=== PATIENT | female | born 1995 | race Caucasian/White ===

== ENCOUNTER 2023-11-24 11:13 | Emergency (ER) | payer MEDICAID, SELFPAY ==
[2023-11-24 11:15] VITALS: BP 102/61; PULSE 80; RESP 16; TEMP 36.6; O2SAT 98; BMI 33.2
--- NOTE | 2023-11-24 11:18 | EX.ED.DYSGE1 ---
HPI <SHY Armas - Last Filed: 11/24/23 12:55> History of Present Illness Chief Complaint: Abd Pain Narrative Narrative: Patient is a 28-year-old female that uses marijuana daily, who presents to the emergency department for generalized abdominal bloating, epigastric pain. Patient states that her abdomen has been getting swollen for the last 5 to 6 months. She did have a tubal ligation 4 years ago. She is concerned that she might be . Patient also has not had a menstrual cycle in last 4 months however did start 1 to 2 days ago and has significant bleeding with clots. Patient states that her bowels change from intermittent constipation to diarrhea. She denies any fever or chills. She denies any nausea or vomiting PFSH <SHY Armas - Last Filed: 11/24/23 12:55> [facility] Medical History (Updated 11/24/23 @ 12:[address] Saad Mistry MD) Paranoid schizophrenia History of substance abuse Home Medications ?Medication ?Instructions ?Recorded ?Last Taken ?Type aripiprazole 30 mg tablet 30 mg PO DAILY 11/24/23 11/23/23 History baclofen 10 mg tablet 10 mg PO QPM 11/24/23 11/23/23 History dicyclomine 20 mg tablet 20 mg PO BID #20 tabs 11/24/23 Unknown Rx emtricitabine 200 mg-tenofovir 1 tab PO DAILY 11/24/23 11/24/23 History disoproxil fumarate 300 mg tablet meloxicam 15 mg tablet 15 mg PO DAILY 11/24/23 11/23/23 History naloxone 4 mg/actuation nasal spray 1 spray intranasal DAILY PRN PRN 11/24/23 Unknown History opioid overdose ondansetron 4 mg disintegrating 4 mg PO Q8H PRN PRN Nausea #10 tabs 11/24/23 Unknown Rx tablet Allergy/AdvReac Type Severity Reaction Status Date / Time amoxicillin Allergy Itching Verified 11/24/23 11:21 guaifenesin (From Robitussin) Allergy Hives Verified 11/24/23 11:21 Penicillins Allergy Itching Verified 11/24/23 11:21 tramadol Allergy Itching Verified 11/24/23 11:21 Surgical History History of esophagogastroduodenoscopy (EGD) H/O tubal ligation History of tonsillectomy and adenoidectomy Social History Smoking Status: Current every day smoker tobacco type: cigarettes ROS <SHY Armas - Last Filed: 11/24/23 12:55> ROS ED ROS Narrative Constitutional: Negative for fever, chills, weight loss, weakness Eyes: Negative for vision loss, vision change, double vision ENT: Negative for any sore throat, ear pain, congestion Cardiovascular: Negative for any chest pain, tightness, palpitations Respiratory: Negative for any cough, sputum production, hemoptysis, dyspnea, dyspnea on exertion, orthopnea Gastrointestinal: Negative for any nausea, vomiting, blood in stool, blood in vomit. Abdominal bloating, intermittent diarrhea, intermittent constipation : Negative for any urinary frequency, dysuria, retention, blood in urine Muscle skeletal: Negative for any neck pain, back pain Neurological: Negative for any headache, syncope, dizziness Skin: Negative for any rashes, itching, abrasions, lacerations Psychiatric: Negative for any depression, anxiety, stress, suicidal ideation, homicidal ideation Hematologic: Negative for any excessive bruising, easy bleeding EXAM <SHY Armas - Last Filed: 11/24/23 12:55> Physical Exam Narrative Exam Narrative: Vital signs reviewed. HEET: Head normocephalic atraumatic, TMs clear bilaterally. Posterior pharynx is clear, moist mucous membranes. Nares clear bilaterally. Neck: Supple with no lymphadenopathy or tenderness. No signs of meningismus. Cardiac: Regular rate and rhythm no murmurs gallops or rubs, equal peripheral pulses bilaterally. Respiratory: Lungs clear to auscultation bilaterally. No chest tenderness. Abdomen: Soft. No abdominal bruit or pulsatile masses. No hepatosplenomegaly. Patient abdomen is soft, her abdomen does not appear to be an state, patient is slightly obese. There is no peritoneal signs. Hyperactive bowel sounds. Patient did have some discomfort with deep palpation of the epigastric area, no significant pain to the right upper quadrant negative Quach sign. No pain in the McBurney's point. Extremities: No peripheral edema, no signs of gross trauma or deformity. Active full range of motion of all extremities. Neuro: Cranial nerves II through XII intact, no focal neurological deficits. Skin: Clean dry and intact with no rash, purpura, petechiae, vesicles or pustules. Backs/flank: No CVA tenderness, no midline spinal tenderness, no deformity. Psych: Normal mood and affect. No SI, HI or acute psychosis. Const Vital Signs: 11/24/23 11:15 11/24/23 12:43 Temperature 97.9 F 98 F Temperature Source Oral Pulse Rate 80 95 Respiratory Rate 16 18 Blood Pressure 102/61 104/61 Blood Pressure Mean 74 75 Pulse Ox 98 97 Oxygen Delivery Method Room Air Positive well nourished and well developed General Appearance ED: well developed <Dr. Saad Mistry MD - Last Filed: 11/24/23 12:58> Physical Exam Const Vital Signs: 11/24/23 11:15 11/24/23 12:43 Temperature 97.9 F 98 F Temperature Source Oral Pulse Rate 80 95 Respiratory Rate 16 18 Blood Pressure 102/61 104/61 Blood Pressure Mean 74 75 Pulse Ox 98 97 Oxygen Delivery Method Room Air MDM <SHY Armas - Last Filed: 11/24/23 12:55> MDM Lab Data Labs: Laboratory Results - last 24 hr 11/24/23 11/24/23 11:45 12:10 WBC 9.0 RBC 4.27 Hgb 11.6 L Hct 37.3 MCV 87.4 MCH 27.2 MCHC 31.1 L RDW Std Deviation 52.8 H RDW Coeff of Boris 16.5 H Plt Count 293 MPV 9.7 Immature Gran % (Auto) 0.200 Neut % (Auto) 62.3 Lymph % (Auto) 27.7 Rincon % (Auto) 7.8 Eos % (Auto) 1.8 Baso % (Auto) 0.2 Absolute Neuts (auto) 5.6 Absolute Lymphs (auto) 2.49 Nucleated RBC % 0 Sodium 138 Potassium 3.9 Chloride 109 H Carbon Dioxide 25.0 Anion Gap 4 L BUN 16 Creatinine 0.77 Estim Creat Clear Calc 126.37 Est GFR (MDRD) Af Amer 115 Est GFR (MDRD) Non-Af 95 BUN/Creatinine Ratio 20.7 H Glucose 88 Calcium 8.5 Total Bilirubin 0.60 AST 18 ALT 21 Alkaline Phosphatase 72 Total Protein 6.9 Albumin 3.5 Globulin 3.4 Albumin/Globulin Ratio 1.0 Lipase 30 Serum , Qual NEGATIVE Urine Color Red Urine Clarity Turbid Urine pH 8.0 Ur Specific [place] 1.015 Urine Protein 500 H Urine Glucose (UA) Normal Urine Ketones Negative Urine Occult Blood 250 H Urine Nitrite Negative Urine Bilirubin Negative Urine Urobilinogen Normal Ur Leukocyte Esterase Negative Urine RBC > 100 SEEN Urine WBC 0 SEEN Ur Squamous Epith Cells 0 SEEN Urine Bacteria 1+ Urine Mucus 0 SEEN Treatment and Re-Evaluation :: Differential diagnosis includes however is not limited to: Ascites, , ectopic , cannabis hyperemesis, constipation, choledocholithiasis, cholelithiasis Patient appears to be in no obvious distress, patient's urine was on the counter, it did appear bloody with a clot. Patient is currently on her menstrual cycle. Patient appears nontoxic, vital signs are stable. Patient will receive a full abdominal workup including a serum hCG, CBC CMP lipase. Urinalysis will be tested. Patient given IV fluids. At this time, I do not believe any advanced imaging is necessary at this time. Patient's laboratory values shows a normal CBC, patient's chemistries were unremarkable, negative for any transaminitis, patient's serum was negative. Lipase was negative. Patient's urinalysis showed 1+ bacteria no white blood cells, greater than 100 red blood cells seen, negative for any nitrates negative for leukocyte Estrace. This is not infectious. On reevaluation, the patient is in no distress. Patient will receive prescriptions for Zofran, Bentyl. She will follow-up with her INSULATION PROFESSIONAL. Patient is agreeable with the plan. Patient was given return precautions. Patient stable for discharge <Dr. Saad Mistry MD - Last Filed: 11/24/23 12:58> [facility] Narrative Medical decision making narrative: I have personally performed a face to face assessment of the patient and have reviewed the NAYELY Note. I performed a substantive portion of the visit including all aspects of the following. My elizabeth findings include: History is remarkable for weight gain, increase abdominal girth. Patient is had no menses for 4 to 5 months. She is status post tubal ligation. 2 ligation was approximate 4 years ago. She denies any breast tenderness. She denies frequency. She feels as if something is moving in her abdomen. She had a normal bowel movement today. Her urine is bloody; however, she is presently bleeding vaginally. She is uncertain whether she may have contaminated urine with vaginal blood. She denies fever, chills night sweats. She denies cardiac or respiratory symptoms. She denies history of constipation. Exam is remarkable for temp noted percussion. Increased bowel sounds. Abdomen is soft nontender. Heart lung exam normal. HEENT exam is normal. Vital signs are normal. Medical Decision Making will obtain urinalysis to evaluate for infection. Since she reports no menses for 4 months we will obtain serum test. CBC was obtained to assess white count differential. Other additions or changes: [None] Lab Data Attestation: I reviewed the patient's lab results. Lab results narrative: CBC is remarkable for mild anemia. Indices are normal. Comprehensive metabolic panel is unremarkable. Chloride slightly elevated 109. Serum test is negative. Urine revealed hematuria with 1+ bacteria. Since patient is asymptomatic treatment is not indicated. Labs: Laboratory Results - last 24 hr 11/24/23 11/24/23 11:45 12:10 WBC 9.0 RBC 4.27 Hgb 11.6 L Hct 37.3 MCV 87.4 MCH 27.2 MCHC 31.1 L RDW Std Deviation 52.8 H RDW Coeff of Boris 16.5 H Plt Count 293 MPV 9.7 Immature Gran % (Auto) 0.200 Neut % (Auto) 62.3 Lymph % (Auto) 27.7 Rincon % (Auto) 7.8 Eos % (Auto) 1.8 Baso % (Auto) 0.2 Absolute Neuts (auto) 5.6 Absolute Lymphs (auto) 2.49 Nucleated RBC % 0 Sodium 138 Potassium 3.9 Chloride 109 H Carbon Dioxide 25.0 Anion Gap 4 L BUN 16 Creatinine 0.77 Estim Creat Clear Calc 126.37 Est GFR (MDRD) Af Amer 115 Est GFR (MDRD) Non-Af 95 BUN/Creatinine Ratio 20.7 H Glucose 88 Calcium 8.5 Total Bilirubin 0.60 AST 18 ALT 21 Alkaline Phosphatase 72 Total Protein 6.9 Albumin 3.5 Globulin 3.4 Albumin/Globulin Ratio 1.0 Lipase 30 Serum , Qual NEGATIVE Urine Color Red Urine Clarity Turbid Urine pH 8.0 Ur Specific [place] 1.015 Urine Protein 500 H Urine Glucose (UA) Normal Urine Ketones Negative Urine Occult Blood 250 H Urine Nitrite Negative Urine Bilirubin Negative Urine Urobilinogen Normal Ur Leukocyte Esterase Negative Urine RBC > 100 SEEN Urine WBC 0 SEEN Ur Squamous Epith Cells 0 SEEN Urine Bacteria 1+ Urine Mucus 0 SEEN Discharge Plan Triage Chief Complaint: Abd Pain ED Midlevel Provider: Bethel Khanna ED Provider: Saad Mistry Dx/Rx/DC Orders Clinical Impression: Abdominal pain, Abdominal bloating, Asymptomatic bacteriuria, Hematuria, Abnormal weight gain Instructions: Abdominal Pain, Understanding Functional Dyspepsia Prescriptions: New ondansetron 4 mg tablet,disintegrating 4 mg PO Q8H PRN PRN (Reason: Nausea) Qty: 10 0RF dicyclomine 20 mg tablet 20 mg PO BID Qty: 20 0RF No Action meloxicam 15 mg tablet 15 mg PO DAILY baclofen 10 mg tablet 10 mg PO QPM aripiprazole 30 mg tablet 30 mg PO DAILY emtricitabine-tenofovir (TDF) 200-300 mg tablet 1 tab PO DAILY naloxone 4 mg/actuation spray,non-aerosol 1 spray INTRANASAL DAILY PRN PRN (Reason: opioid overdose) Patient Comments: MAY REPEAT ONCE, CALL 911 Primary Care Provider: Care Physician,No Primary Referrals: Care Physician,No Primary [Primary Care Provider] - Activity Restrictions/Additional Instructions: Please follow-up with your INSULATION PROFESSIONAL. You had a negative blood test today, your laboratory values were unremarkable. Your urine showed no signs or symptoms of infection. Print Language: [place] Helen[place] Disposition Disposition: Home, Self Care
[2023-11-24] MEDS: 0.9% Normal Saline (1000mL) 1,000 ML 999 ML IV (11:41)
[2023-11-24 12:02] LABS: Absolute Lymphocyte Count 2.49 X10^3/uL (0.83-4.51); Absolute Neutrophil Count 5.6 X10^3/uL (2.0-7.7); Basophil# 0.02 X10^3/uL; Basophil% 0.2 % (0-1); Eosinophil# 0.16 X10^3/uL; Eosinophils% 1.8 % (0-5); Hematocrit 37.3 % (37-47); Hemoglobin 11.6 g/dL (12.0-15.0); Lymphocyte # 2.49 X10^3/ul (0.83-4.51); Lymphocyte % 27.7 % (19-41); Mean Corp Hgb Conc 31.1 g/dL (32-36); Mean Corpuscular Hgb 27.2 pg (27.0-32.0); Mean Corpuscular Volume 87.4 fL (81-99); Mean Platelet Vol. 9.7 fl (6.2-12.0); Monocyte% 7.8 % (0-10); NRBC Flagged by Analyzer 0 % (0-5); Neutrophil % 62.3 % (47-70); Platelet Count 293 K/mm3 (150-450); RBC Distribution Width CV 16.5 % (11.6-14.6); RBC Distribution Width SD 52.8 fl (35.1-43.9); Red Blood Count 4.27 M/mm3 (4.2-5.4)
[2023-11-24 12:12] LABS: Internal QC Validated? YES +Cl - CLEAR BKGD; Pregnancy, Serum, hCG Quali. NEGATIVE Negative
[2023-11-24 12:23] LABS: Squamous Epithelial Cells - UA 0 SEEN /hpf (5-10); White Blood Cells 0 SEEN /hpf (0-5)
[2023-11-24 12:23] LABS: AST(SGOT) 18 U/L (15-37); Alanine Aminotransfer ALT/SGPT 21 U/L (13-56); Albumin, Serum 3.5 g/dL (3.2-5.0); Alkaline Phosphatase 72 U/L (45-117); Anion Gap 4 (5-15); BUN 16 mg/dL (7-18); BUN/Creat Ratio 20.7 RATIO (10-20); Calcium,Total 8.5 mg/dL (8.5-10.1); Chloride 109 mmol/L (98-107); Creatinine, Serum 0.77 mg/dL (0.55-1.02); EST Glomerular Filtration Rate 95 mL/min (>60); Est Glom Filt Rate - Afr Amer 115 mL/min (>60); Estimated Creatinine Clearance 126.37 ml/min; Globulin 3.4 g/dL (2.2-4.2); Glucose 88 mg/dL (74-106); Lipase 30 U/L (13-75); Potassium 3.9 mmol/L (3.5-5.1); Protein, Total 6.9 g/dL (6.4-8.2); Sodium Level 138 mmol/L (136-145)
[2023-11-24 12:24] LABS: Mucous, Urine 0 SEEN /hpf (<or=2+)
[2023-11-24 12:31] LABS: Color, Urine Red (Yellow); Glucose, Dipstick Normal (Normal); Ketone-Dipstick Negative (Negative); Leukocyte Esterase-Dipstick Negative /ul (Negative); Nitrite-Dipstick Negative (Negative); Occult Blood-Urine 250 /ul (Negative); Protein-Dipstick 500 mg/dl (Negative); Specific Gravity, Urine 1.015 (1.002-1.030); Urine Bilirubin Dipstick Negative (Negative); Urine Clarity Turbid (Clear); Urine Urobilinogen Normal (Normal)
[2023-11-24 12:43] VITALS: BP 104/61; PULSE 95; RESP 18; TEMP 36.6; O2SAT 97
[2023-11-24 12:43] LABS: Red Blood Cells-Urine > 100 SEEN /hpf (0-5)
[2023-11-24 12:44] LABS: Bacteria 1+ /hpf (None Seen)
[2023-11-24 13:15] VITALS: BP 95/55; PULSE 94; RESP 14; O2SAT 98
== END 2023-11-24 13:23 | disposition home or self-care (01) ==
PROVIDERS: Nurse Practitioner; Emergency Provider Emergency Medicine; Visit Provider Emergency Medicine
DX: R10.13 Epigastric pain (principal); R31.9 Hematuria, unspecified; R14.0 Abdominal distension (gaseous); R82.71 Bacteriuria; R63.5 Abnormal weight gain; F17.210 Nicotine dependence, cigarettes, uncomplicated; Z79.899 Other long term (current) drug therapy; Z98.51 Tubal ligation status
CPT/HCPCS: 80053; 81001; 83690; 84703; 85025; 99284; 99285; A4216

== ENCOUNTER 2024-01-18 20:20 | Emergency (ER) | payer MEDICAID, SELFPAY ==
[2024-01-18 20:21] VITALS: BP 134/68; PULSE 109; RESP 18; TEMP 36.1; O2SAT 99; BMI 29.4
--- NOTE | 2024-01-18 20:32 | EX.ED.DYSGE1 ---
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 She states she first noticed this when she felt something in her abdomen moving around. She felt like it was probably a snake. Therefore she states that she got a rat and shoved it up my ass, and it worked. When asked what she means by this, she states that she pooped out the rat and the snake. However she knows that there is another 1 in there and it climbed up into her throat and she cannot get it out. She is telling me this while she is holding her mouth open and has her thumb in the back of her throat on her soft palate and asking me to look and see because it is there. She admits to using cocaine 2 days ago and nothing today. She was nothing else that she knows of on purpose, and states that she uses once in a blue love. [facility] Medical History Paranoid schizophrenia History of substance abuse Home Medications ?Medication ?Instructions ?Recorded ?Last Taken ?Type aripiprazole 30 mg tablet 30 mg PO DAILY 11/24/23 11/23/23 History baclofen 10 mg tablet 10 mg PO QPM 11/24/23 11/23/23 History dicyclomine 20 mg tablet 20 mg PO BID #20 tabs 11/24/23 Unknown Rx emtricitabine 200 mg-tenofovir 1 tab PO DAILY 11/24/23 11/24/23 History disoproxil fumarate 300 mg tablet meloxicam 15 mg tablet 15 mg PO DAILY 11/24/23 11/23/23 History naloxone 4 mg/actuation nasal spray 1 spray intranasal DAILY PRN PRN 11/24/23 Unknown History opioid overdose ondansetron 4 mg disintegrating 4 mg PO Q8H PRN PRN Nausea #10 tabs 11/24/23 Unknown Rx tablet Allergy/AdvReac Type Severity Reaction Status Date / Time amoxicillin Allergy Itching Verified 11/24/23 11:21 guaifenesin (From Robitussin) Allergy Hives Verified 11/24/23 11:21 Penicillins Allergy Itching Verified 11/24/23 11:21 tramadol Allergy Itching Verified 11/24/23 11:21 Surgical History History of esophagogastroduodenoscopy (EGD) H/O tubal ligation History of tonsillectomy and adenoidectomy Social History Smoking Status: Current every day smoker tobacco type: cigarettes EXAM Physical Exam Const Vital Signs: 01/18/24 20:21 Temperature 97 F L Temperature Source Temporal Pulse Rate 109 H Respiratory Rate 18 Blood Pressure 134/68 H Blood Pressure Mean 90 Pulse Ox 99 Positive well nourished and well developed General Appearance ED: well developed and NAD HEENT Reports moist mucous membranes HEENT Narrative: Posterior oropharynx clear and normal. No foreign body. No stridor. When she closes her mouth she can speak normally but the majority of time is difficult to understand her because she refuses to close her mouth and talk at the same time. normocephalic and atraumatic Eyes PERRL and EOMs intact bilaterally Neck full ROM, no lymphadenopathy and supple Resp normal respiratory effort and clear to auscultation bilaterally Cardio regular rate, regular rhythm and no murmurs GI non-distended GI Narrative: Mild tenderness epigastrium and right upper quadrant no guarding or rebound no other areas of tenderness no palpable masses. Normal external inspection of abdomen. Auscultation: normoactive bowel sounds Palpation: soft Back/Spine no CVA tenderness General Back: other FROM Extremity normal to inspection General Extremety ED: Negative for edema, pulses abnormal or tenderness General Extremity: Negative for edema or pulses abnormal Neuro oriented x3, CN's II-XII intact bilaterally and no sensory deficits noted Sensorium / Orientation: awake and alert Motor Exam: strength 5/5 throughout Psych Psych Narrative: Delusional. Anxious. Denies suicidal or homicidal ideation. Skin no rashes or lesions noted and no wounds MDM MDM MDM Narrative Medical decision making narrative: When asked if she really thinks there could possibly be a snake in her, she states Carlos was right, I knew that is what you would say. Unk who Carlos is; she states it is someone that she used to know. I advised her I was happy to run some tests. In looking at her chart she has a history of paranoid schizophrenia. She states she takes her medications. Unknown if this is true or not. When I left the room, apparently the patient used a tongue depressor to try to gag herself, and then she decided to elope. Certainly is possible that she has a history of paranoid schizophrenia and is not taking her medications, it is also possible that she is hallucinating and psychotic because of doing drugs, even though she denied using meth today she has a record of using methamphetamine in the EMR. Management Discussion w/another healthcare provider: Behavioral health (Looked her up in their system, no record of her) Discharge Plan Triage Chief Complaint: Sore Throat ED Provider: Provider,Ed Physician Dx/Rx/DC Orders Clinical Impression: Acute psychosis, Delusions of parasitosis, Paranoid schizophrenia Prescriptions: No Action meloxicam 15 mg tablet 15 mg PO DAILY baclofen 10 mg tablet 10 mg PO QPM aripiprazole 30 mg tablet 30 mg PO DAILY emtricitabine-tenofovir (TDF) 200-300 mg tablet 1 tab PO DAILY naloxone 4 mg/actuation spray,non-aerosol 1 spray INTRANASAL DAILY PRN PRN (Reason: opioid overdose) Patient Comments: MAY REPEAT ONCE, CALL 911 ondansetron 4 mg tablet,disintegrating 4 mg PO Q8H PRN PRN (Reason: Nausea) Qty: 10 0RF dicyclomine 20 mg tablet 20 mg PO BID Qty: 20 0RF Primary Care Provider: Care Physician,No Primary Referrals: Care Physician,No Primary [Primary Care Provider] - Print Language: Greek Disposition Disposition: Elopement
--- NOTE | 2024-01-18 20:57 | ED.RN ---
This nurse to room to check on pt. Pt shoving cotton tipped swabs and tongue depressor down throat. This nurse takes things out of pts mouth. Pt tries to grab more supplies, this nurse attempts to redirect and pt yells at nurse. Pt storms out of department. Dr. Dover made aware.
== END 2024-01-18 20:50 | disposition left against medical advice (07) ==
LOC: ED 20:59
PROVIDERS: Emergency Provider Emergency Medicine; Visit Provider Emergency Medicine
DX: F20.0 Paranoid schizophrenia (principal); F17.210 Nicotine dependence, cigarettes, uncomplicated; Z79.899 Other long term (current) drug therapy
CPT/HCPCS: 99282